=== PATIENT | male | born 1970 | race Caucasian/White ===

== ENCOUNTER 2017-06-22 08:41 | Emergency (ER) | payer MEDICAID ==
[~2017-06-22] VITALS: Ht 175.3 cm; Wt 86.2 kg
[2017-06-22 09:18] VITALS: BP 132/92
[2017-06-22] MEDS ORDERED: KETOROLAC TROMETH 60MG/2ML VIAL IM ONE (09:45)
== END 2017-06-22 09:53 | disposition home or self-care (01) ==
LOC: ER 08:41
DX: S76.011A Strain of muscle, fascia and tendon of right hip, initial encounter (principal); W11.XXXA Fall on and from ladder, initial encounter; Y93.89 Activity, other specified; Y99.8 Other external cause status; Y92.89 Other specified places as the place of occurrence of the external cause
CPT/HCPCS: 73502; 96372; 99284; J1885

== ENCOUNTER 2018-01-25 10:06 | Emergency (ER) | payer MEDICAID ==
[~2018-01-25] VITALS: Ht 175.3 cm; Wt 87.5 kg
[2018-01-25 12:45] VITALS: BP 148/96
[2018-01-25] MEDS ORDERED: KETOROLAC TROMETH 60MG/2ML VIAL IM ONE (12:45)
== END 2018-01-25 13:47 | disposition home or self-care (01) ==
LOC: ER 10:06
DX: M51.37 Other intervertebral disc degeneration, lumbosacral region (principal); G89.29 Other chronic pain
CPT/HCPCS: 72100; 96372; 99284; J1885

== ENCOUNTER 2018-09-17 23:40 | Emergency (ER) | payer MEDICAID ==
[~2018-09-17] VITALS: Ht 175.3 cm; Wt 90.7 kg
[2018-09-18] MEDS ORDERED: TETANUS-DIPTH-ACEL PERTUSSIS 0.5ML SYRG IM ONE (05:15)
[2018-09-18] MEDS ORDERED: cefTRIAXone SOD 1,000 MG VL IM ONE (05:15)
[2018-09-18] MEDS ORDERED: LIDOCAINE 1% HCL (LOCAL ANESTH.) INJ 20ML MDV ID ONE (05:15)
[2018-09-18 06:02] VITALS: BP 134/78
== END 2018-09-18 07:03 | disposition home or self-care (01) ==
LOC: ER 23:40
DX: S01.81XA Laceration without foreign body of other part of head, initial encounter (principal); S61.213A Laceration without foreign body of left middle finger without damage to nail, initial encounter; W01.198A Fall on same level from slipping, tripping and stumbling with subsequent striking against other object, initial encounter; Y93.89 Activity, other specified; Y99.8 Other external cause status; Y92.89 Other specified places as the place of occurrence of the external cause
CPT/HCPCS: 12001; 70450; 72125; 73130; 90471; 90715; 96372; 99284; J0696; J2001

== ENCOUNTER 2018-09-30 08:23 | Emergency (ER) | payer MEDICAID ==
[~2018-09-30] VITALS: Ht 175.3 cm; Wt 90.7 kg
[2018-09-30 08:27] VITALS: BP 136/82
== END 2018-09-30 08:56 | disposition home or self-care (01) ==
LOC: ER 08:25
DX: S61.213D Laceration without foreign body of left middle finger without damage to nail, subsequent encounter (principal); S01.01XD Laceration without foreign body of scalp, subsequent encounter; X58.XXXD Exposure to other specified factors, subsequent encounter